=== PATIENT | male | born 1975 | race Caucasian/White ===

== ENCOUNTER → 2017-02-01 | Day surgery (SDC) | payer MEDICAID ==
[~2017-02-01] VITALS: Ht 188 cm; Wt 97.4 kg
[~2017-02-01] MED LIST: ACETAMINOPHEN/HYDROcodone 325 MG/5 MG TAB ONE; ACETAMINOPHEN/HYDROcodone 325 MG/5 MG TAB PO PRN; ASPI1TAB69 PO; ATOR1TAB18 PO; BACITRACIN TOP OINT 15 GM TUBE ONE; BUPR100T4 PO; CARV12.52 PO; DO NOT ADM ANY ANTICOAGULANT DRUGS XX PRN; INSULIN HUMAN REGULAR 1,000 UNITS/10 ML VIAL SQ PRN; LACTATED RINGER'S 1000 ML IV SCH; LIDOCAINE HCL 2% 50 ML VIAL ONE; METOPROLOL TARTRATE 25 MG TAB PO PRN; MORPHINE SULFATE 4 MG/ML INJ IV PUSH PRN; OMEP40CA2 PO; ONDANSETRON HCL 4 MG/2 ML VIAL IV PUSH ONE; ONDANSETRON HCL 4 MG/2 ML VIAL IV PUSH PRN; PROPOFOL 200 MG/20 ML AMP IV ONE; RANI150T PO; SODIUM CHLORID 0.9% 500 ML IV SCH; VANCOMYCIN 1,000 MG/NS 250ML (for <70 kg) IV SCH; ZOLP10TA3 PO; fentaNYL CITRATE 250 MCG/5 ML AMP ONE
[2017-02-01 07:05] VITALS: BP 129/78; PULSE 73; RESP 18; TEMP 97.8; O2SAT 97
[2017-02-01 07:25] LABS: AUTOMATED NEUTROPHIL # 4.9 TH/MM3 (1.8-7.7); BASOPHIL % 0.3 % (0.0-2.0); EOSINOPHIL # 0.1 TH/MM3 (0-0.4); EOSINOPHIL % 1.1 % (0.0-4.0); HEMATOCRIT 40.5 % (39.0-51.0); HEMO FLAGS DIFF FINAL; LYMPH % 25.8 % (9.0-44.0); MEAN CELL VOLUME 85.3 FL (80.0-100.0); MEAN CORPUSCULAR HEMOGLOBIN 29.7 PG (27.0-34.0); MEAN CORPUSCULAR HGB CONC 34.9 % (32.0-36.0); MONO % 8.6 % (0.0-8.0); NEUT % 64.2 % (16.0-70.0); PLATELET COUNT 195 TH/MM3 (150-450); RED BLOOD COUNT 4.75 MIL/MM3 (4.50-5.90); RED CELL DISTRIBUTION WIDTH 13.1 % (11.6-17.2); WHITE BLOOD COUNT 7.7 TH/MM3 (4.0-11.0)
--- NOTE | 2017-02-01 08:57 | PD.OP ---
Operative Report Date of Surgery: Feb 01, 2017 Preoperative Diagnosis: Elective Vasectomy Postoperative Diagnosis: Same Procedure: Bilateral Vasectomy Anesthesia: General LMA Surgeon: Bhupinder Guerrero Sewer Hand(s): None Resident Surgeon: None Operation and Findings: 41-year-old male presented to the office desiring elective vasectomy. Patient currently has fathered 5 children. Risk and benefits of the procedure were discussed preoperatively and he was willing to proceed. Patient is brought to the operative identified myself as Abdi Ta. He was placed in supine position, prepped and draped in usual sterile fashion, received preprocedure antibiotics and general LMA anesthesia was administered. Half percent Marcaine was injected into the area of the median raphae. The ring forcep clamp was used to grasp the skin overlying the left vas deference as it was brought to the area of the median raphae. A 15 blade was used to make a small incision and then the vas was grasped with a ring forcep. The piercing forcep clamp was then used to remove the overlying tissue around the vas deferens. This continued until the vas deferens was isolated. The vas was then cut and sent to pathology. The sharp Bovie was then used to fulgurate the lumen of the vas on each end, then 4-0 Vicryl ties were placed on the proximal and distal ends of the vas deferens. This was again repeated on the right side without difficulty. Hemostasis was obtained throughout the entire case. Scrotal support with fluffs were placed at the end of the case. He was awoken and extubated and transferred to recovery room in stable condition. Bhupinder Guerrero DO Feb 01, 2017 08:57
[2017-02-01 10:15] VITALS: BP 121/73; PULSE 69; RESP 18; TEMP 98.5; O2SAT 97
== END | disposition home or self-care (01) ==
LOC: HSDC 06:09
PROVIDERS: ATTEND Urology
DX: Z30.2 Encounter for sterilization (principal)
CPT/HCPCS: 00921; 55250; 85025; 88302; J2405; J3010; J3370; J7050; J7120